=== PATIENT | male | born 1990 | race Caucasian/White ===

== ENCOUNTER 2017-05-10 07:22 | Emergency (ER) | payer SELFPAY ==
[~2017-05-10] VITALS: Ht 175.3 cm; Wt 68.0 kg
== END 2017-05-10 08:37 | disposition home or self-care (01) ==
LOC: CFTX 07:22 → CED 07:22 → EDSEX 07:22 → CFTX 07:48
DX: J02.0 Streptococcal pharyngitis (principal); F17.210 Nicotine dependence, cigarettes, uncomplicated
CPT/HCPCS: 87880; 96372; 99283; J0561